=== PATIENT | female | born 1985 ===

== ENCOUNTER 2022-03-28 17:44 | Inpatient (IN) | payer BC ==
[2022-03-28] MEDS ORDERED: HALOPERIDOL LACTATE 5 MG/ML 1 ML VIAL IM PRN (18:54)
[2022-03-28] MEDS ORDERED: MAGNESIUM HYDROXIDE 2,400 MG/10 ML CUP PO PRN (18:54)
[2022-03-28] MEDS ORDERED: MAG HYDROX/AL HYDROX/SIMETH 30 ML CUP PO PRN (18:54)
[2022-03-28] MEDS ORDERED: LORazepam 1 MG TAB PO PRN (18:54)
[2022-03-28] MEDS ORDERED: haloperidoL 5 MG TAB PO PRN (18:59)
[2022-03-28] MEDS ORDERED: LORazepam 2 MG/ML INJ IM PRN (18:59)
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
[2022-03-29] MEDS ORDERED: ENOXAPARIN 30 MG/0.3 ML SYRINGE SQ SCH (09:00)
[2022-03-29] MEDS: NICOTINE 21MG/24HR PATCH TRANSDERM SCH (09:34)
[2022-03-29] MEDS: lisinopriL 10 MG TAB PO SCH (09:35)
[2022-03-29 10:02] LABS: Basophils % (A) 0 %; Eosinophils # (A) 0.1 k/uL (0-0.7); Eosinophils % (A) 2 %; HGB 13.6 gm/dL (11.4-16.0); Lymphocytes # (A) 1.9 k/uL (1.0-4.8); Lymphocytes % (A) 21 %; MCH 32.3 pg (25.0-35.0); MCHC 32.3 g/dL (31.0-37.0); Monocytes # (A) 0.4 k/uL (0-1.0); Monocytes % (A) 5 %; Neutrophils # (A) 6.2 k/uL (1.3-7.7); Neutrophils % (A) 70 %; Platelet Count 255 k/uL (150-450); RDW 12.8 % (11.5-15.5); WBC 8.9 k/uL (3.8-10.6)
[2022-03-29 10:07] LABS: ALT 11 U/L (4-34); AST 25 U/L (14-36); African American GFR (CKD) >90 (>60 ml/min/1.73 sqM); Albumin 4.5 g/dL (3.5-5.0); Alkaline Phosphatase 59 U/L (38-126); Anion Gap 14 mmol/L; Bilirubin, Delta 0.2 mg/dL (0.0-0.2); Bilirubin,Unconjugated 0.5 mg/dL (0.0-1.1); Blood Urea Nitrogen 13 mg/dL (7-17); Calcium 8.9 mg/dL (8.4-10.2); Carbon Dioxide 22 mmol/L (22-30); Chloride 102 mmol/L (98-107); Glucose 100 mg/dL (74-99); Non-African American GFR(CKD) >90 (>60 ml/min/1.73 sqM); Potassium 4.1 mmol/L (3.5-5.1); Sodium 138 mmol/L (137-145); Total Bilirubin 0.7 mg/dL (0.2-1.3); Total Protein 7.3 g/dL (6.3-8.2)
--- NOTE | 2022-03-29 10:08 | P.CONS ---
History of Present Illness - Reason for Consult Consult date: 03/29/22 wound care - History of Present Illness This is a 37-year-old patient being seen on the mental health unit for self-inflicted lacerations to the right side of the neck, left forearm, and the right anterior lower extremity. Patient states that the lacerations have been approximately 5 days ago. The left forearm laceration is sutured. The right side of the neck laceration is superficial measuring approximately 1 x 1 x 0.1 cm granulated seen throughout the wound bed wound edges are attached to the wound base no tunneling or undermining noted. The right lower extremity anterior aspect has 2 laceration with fat layer exposure measuring approximately 1.5 x 1.5 x 0.2 cm and 1 x 1 x 0.2 cm. granulation seen throughout the wound bed wound edges are attached to the wound base on undermining noted. Review Of Systems: Constitutional: No fever, no chills, no night sweats. No weight change. No weakness, fatigue or lethargy. No daytime sleepiness. Integumentary:reports wounds, no lesions. No rash or pruritus. No unusual bruising. No change in hair or nails. Physical exam: General Appearance: Alert, cooperative, no distress, appears stated age. Skin: See HPI all other Skin color, texture, tugor normal, no rashes or lesions. Neurologic: Alert oriented x3 Assessment: 1. Nonhealing ulceration to the right lower extremity thigh with fat layer exposure 2. Nonhealing ulceration to other parts of body Limited to skin breakdown 3. Laceration with sutures to the left forearm Plan: 1. Right lower extremity: Apply collagen, saline moistened gauze and border foam changing Sunday was a Sunday. 2. Right side of neck: Apply triad daily 3. Left forearm: Apply bacitracin and cover change daily. Thank you for the consultation any questions was contact the wound care center DNP note has been reviewed and discussed with Dr. Caldwell and the impression and plan of care has been directed as dictated. Medications and Allergies Home Medications Medication Instructions Recorded Confirmed Type Bacitracin Zinc Oint 03/28/22 History Enoxaparin [Lovenox] 30 mg SQ BID 03/28/22 03/28/22 History lisinopriL [Zestril] 10 mg PO DAILY 03/28/22 03/28/22 History oxyCODONE HCL 5 mg PO Q4HR PRN 03/28/22 03/28/22 History Allergies Allergy/AdvReac Type Severity Reaction Status Date / Time No Known Allergies Allergy Verified 03/28/22 18:44 Physical Exam Vitals: Vital Signs Temp Pulse Resp BP 03/28/22 21:32 98.4 F 105 H 18 128/98 Intake and Output 03/28/22 03/29/22 03/29/22 22:59 06:59 14:59 Other: Weight 65 kg Results CBC & Chem 7: 03/29/22 09:24 Assessment and Plan (1) Non-pressure chronic ulcer of right lower leg with fat layer exposed Current Visit: Yes Status: Acute Code(s): L97.912 - NON-PRS CHR ULC UNSP PRT OF R LOW LEG W FAT LAYER EXPOSED SNOMED Code(s): 53031622 (2) Non-pressure chronic ulcer of skin of other sites limited to breakdown of skin Current Visit: Yes Status: Acute Code(s): L98.491 - NON-PRS CHRONIC ULCER SKIN/ SITES LIMITED TO BRKDWN SKIN SNOMED Code(s): 30238366 (3) Laceration of left forearm Current Visit: Yes Status: Acute Code(s): S51.812A - LACERATION WITHOUT FOREIGN BODY OF LEFT FOREARM, INIT ENCNTR SNOMED Code(s): 49075376620307000
[2022-03-29] MEDS ORDERED: MELATONIN 5 MG TABLET PO PRN (11:14)
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
[2022-03-29] MEDS: DULoxetine HCL 30 MG CAPSULE.DR PO SCH (12:37)
[2022-03-29] MEDS: BACITRACIN OINT 1 EACH PACKET TOPICAL SCH (17:20)
[2022-03-29] MEDS: HYDROPHILIC CREAM 180 GM TUBE TOPICAL SCH (17:21)
[2022-03-29 19:31] LABS: Chol/HDL Ratio 4.15 Ratio
[2022-03-29] MEDS: ACETAMINOPHEN TAB 325 MG TAB PO PRN (20:31)
[2022-03-30] MEDS: lisinopriL 10 MG TAB PO SCH (09:04)
[2022-03-30] MEDS: DULoxetine HCL 30 MG CAPSULE.DR PO SCH (09:04)
[2022-03-30] MEDS: NICOTINE 21MG/24HR PATCH TRANSDERM SCH (09:04)
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
[2022-03-30] MEDS: BACITRACIN OINT 1 EACH PACKET TOPICAL SCH (12:46)
[2022-03-30] MEDS: HYDROPHILIC CREAM 180 GM TUBE TOPICAL SCH (12:46)
[2022-03-30] MEDS: ACETAMINOPHEN TAB 325 MG TAB PO PRN (20:16)
[2022-03-31] MEDS: DULoxetine HCL 30 MG CAPSULE.DR PO SCH (08:13)
[2022-03-31] MEDS: lisinopriL 10 MG TAB PO SCH (08:13)
[2022-03-31] MEDS: HYDROPHILIC CREAM 180 GM TUBE TOPICAL SCH (09:58)
[2022-03-31] MEDS: BACITRACIN OINT 1 EACH PACKET TOPICAL SCH (09:58)
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
[2022-03-31] MEDS: IBUPROFEN 600 MG TAB PO PRN (21:04)
[2022-03-31] MEDS: MELATONIN 5 MG TABLET PO SCH (21:14)
[2022-04-01] MEDS: DULoxetine HCL 30 MG CAPSULE.DR PO SCH (08:17)
[2022-04-01] MEDS: lisinopriL 10 MG TAB PO SCH (08:17)
[2022-04-01] MEDS: IBUPROFEN 600 MG TAB PO PRN ×2 (08:18→16:33)
[2022-04-01] MEDS: BACITRACIN OINT 1 EACH PACKET TOPICAL SCH (11:29)
[2022-04-01] MEDS: HYDROPHILIC CREAM 180 GM TUBE TOPICAL SCH (11:30)
--- NOTE | 2022-04-01 19:22 | P.PN ---
Progress Note - Text Progress Note Date: 04/01/22 Interval history: Patient was seen talking on the phone to her mother and was directable and agreeable to speak with story writer. She reports her mood, sleep and appetite are improving. At this time, patient denies any suicidal or homicidal ideations, intent or plan. She denies any auditory or visual hallucinations. Patient denies any side effects from the medications and has been compliant with meds. Mental status exam: General Appearance: Patient appears to be stated age. good hygiene, clean casual attire. Behavior: No agitated behavior. Patient is calm and directable. Speech: Patient's speech is fluent and non-pressured. Mood/Affect: Mood is improving mildly, affect is congruent and constricted. Suicidality/Homicidality: Patient denies having any suicidal or homicidal ideation intent or plan. Perceptions: Patient denies any auditory or visual hallucinations. Though content/process: There is no evidence of any delusional thought content and thought process is linear and goal-directed. Memory and concentration: AOX3, grossly intact for the purposes of this session Judgment and insight: improving mildly Assessment/Plan: Continue with current diagnosis. Patient continues to meet criteria for inpatient psychiatric admission for symptom stabilization and safety. Patient will be maintained on current psychotropic medication regimen. Monitor for medication compliance and for any psychotropic medication side effects. Will continue to monitor ongoing response to treatment. Encouraged participation in milieu.
[2022-04-01] MEDS: MELATONIN 5 MG TABLET PO SCH (21:00)
[2022-04-02] MEDS: lisinopriL 10 MG TAB PO SCH (08:47)
[2022-04-02] MEDS: DULoxetine HCL 30 MG CAPSULE.DR PO SCH (08:47)
[2022-04-02] MEDS: IBUPROFEN 600 MG TAB PO PRN ×2 (08:50→20:02)
[2022-04-02] MEDS: BACITRACIN OINT 1 EACH PACKET TOPICAL SCH (12:06)
[2022-04-02] MEDS: HYDROPHILIC CREAM 180 GM TUBE TOPICAL SCH (12:06)
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
[2022-04-02] MEDS: MELATONIN 5 MG TABLET PO SCH (21:26)
[2022-04-03] MEDS: lisinopriL 10 MG TAB PO SCH (08:34)
[2022-04-03] MEDS: DULoxetine HCL 30 MG CAPSULE.DR PO SCH (08:34)
[2022-04-03] MEDS: IBUPROFEN 600 MG TAB PO PRN ×2 (08:34→20:27)
[2022-04-03] MEDS: BACITRACIN OINT 1 EACH PACKET TOPICAL SCH (10:04)
[2022-04-03] MEDS: HYDROPHILIC CREAM 180 GM TUBE TOPICAL SCH (10:04)
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
[2022-04-03] MEDS: MELATONIN 5 MG TABLET PO SCH (20:27)
[2022-04-04 06:48] VITALS: RESP 18; TEMP 97.8
[2022-04-04] MEDS: HYDROPHILIC CREAM 180 GM TUBE TOPICAL SCH (09:26)
[2022-04-04] MEDS: DULoxetine HCL 30 MG CAPSULE.DR PO SCH (09:26)
[2022-04-04] MEDS: lisinopriL 10 MG TAB PO SCH (09:26)
[2022-04-04] MEDS: BACITRACIN OINT 1 EACH PACKET TOPICAL SCH (09:27)
[2022-04-04] MEDS: IBUPROFEN 600 MG TAB PO PRN (09:27)
[2022-04-04 09:29] VITALS: BP 123/79; PULSE 94
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
== END 2022-04-04 12:20 | disposition home or self-care (01) | DRG 885 ==
LOC: UNDOADMIN 17:44 → 3MHU 17:44
PROVIDERS: ADMIT Psychiatry & Neurology Psychiatry; ATTEND Psychiatry & Neurology Psychiatry
DX: F32.2 Major depressive disorder, single episode, severe without psychotic features (principal); L97.912 Non-pressure chronic ulcer of unspecified part of right lower leg with fat layer exposed; R45.851 Suicidal ideations; F25.0 Schizoaffective disorder, bipolar type; F10.10 Alcohol abuse, uncomplicated; Z71.41 Alcohol abuse counseling and surveillance of alcoholic; Z63.8 Other specified problems related to primary support group; F17.210 Nicotine dependence, cigarettes, uncomplicated; F41.9 Anxiety disorder, unspecified; G47.00 Insomnia, unspecified; I10 Essential (primary) hypertension; S81.811A Laceration without foreign body, right lower leg, initial encounter; X78.1XXA Intentional self-harm by knife, initial encounter; L98.491 Non-pressure chronic ulcer of skin of other sites limited to breakdown of skin; S11.91XA Laceration without foreign body of unspecified part of neck, initial encounter; S51.812A Laceration without foreign body of left forearm, initial encounter; Z79.899 Other long term (current) drug therapy
CPT/HCPCS: 80053; 80061; 82248; 83036; 84443; 85025